=== PATIENT | male | born 1980 | race Caucasian/White ===

== ENCOUNTER 2017-09-25 18:04 | Emergency (ER) | payer BC ==
[2017-09-25] MEDS ORDERED: Sodium Chloride 0.9% 10 ML Syringe FLUSH PRN (18:24)
[2017-09-25] MEDS ORDERED: Sodium Chloride 0.9% 2.5 ML Syringe FLUSH PRN (18:24)
[2017-09-25] MEDS ORDERED: Sodium Chloride 0.9% 1,000 ML IV ONE (18:25)
[2017-09-25] MEDS ORDERED: Metoclopramide 10 MG/2 ML SDV IV ONE (18:25)
--- NOTE | 2017-09-25 18:28 | EDM.PDOC ---
ED HPI GENERAL MEDICAL PROBLEM - General Chief Complaint: Abdominal Pain Stated Complaint: ABDOMINAL PAIN Time Seen by Provider: 09/25/17 18:24 Source of Information: Reports: Patient History Limitations: Reports: No Limitations - History of Present Illness INITIAL COMMENTS - FREE TEXT/NARRATIVE: HISTORY AND PHYSICAL: []37-year-old male presenting with abdominal pain/pressure History of Present Illness: []Last weekend 8 days ago, patient experienced similar pressure. He had diarrhea and then had some bloody stool. Then everything was fairly normal now Tuesday night 8 days later he is having pressure to the lower abdomen. Denies having any stool today. Patient took some Pepcid today and a dulcolax. Review of Systems: As per history of present illness and below otherwise all systems reviewed and negative. Past medical history: As per history of present illness and as reviewed below otherwise noncontributory. Surgical history: As per history of present illness and as reviewed below otherwise noncontributory. Social history: No reported history of drug or alcohol abuse. Family history: As per history of present illness and as reviewed below otherwise noncontributory. Physical exam: HEENT: Atraumatic, normocehpalic, pupils reactive, negative for conjunctival pallor or scleral icterus, mucous membranes moist, throat clear, neck supple, nontender, trachea midline. Lungs: Clear to auscultation, breath sounds equal bilaterally, chest non tender. Heart: S1S2, regular, negative for clicks, rubs, or JVD. Abdomen: Soft, nondistended, nontender. Negative for masses or hepatossplenmegaly. Negative for costovertebral tenderness. Pelvis: Stable nontender. Genitourinary: Deferred. Rectal: Deferred Extremities: Atraumatic, negative for cords or calf pain. Neurovascular unremarkable. Neuro: Awake, alert, oriented. Cranial nerves II through XII unremarkable. Cerebellum unremarkable. Motor and sensory unremarkable throughout. Exam nonfocal. Discussed the negative CT and lab work with this patient. Large of gas throughout the abdomen is noted on his CT scan along with stool. Diagnostics: [CBC CMP amylase lipase abdomen pelvis CT with contrast] Therapeutics: [Normal saline Reglan 10 IV] Impression: [Abdominal pain] Plan: []Discharged to home Dulcolax suppository commended Increase fluid intake Definitive disposition and diagnosis as appropriate pending reevaluation and review of above. Onset: Gradual Duration: Week(s): (1) Location: Reports: Abdomen Quality: Reports: Pressure Severity: Moderate Improves with: Reports: None Worsens with: Reports: None abdominal Pain Score (Numeric/FACES): 5 - Related Data Allergies Allergy/AdvReac Type Severity Reaction Status Date / Time No Known Allergies Allergy Verified 09/25/17 18:13 Home Meds: Home Meds . [No Known Home Meds] 09/25/17 [History] Past Medical History Respiratory History: Reports: Pneumothorax - Infectious Disease History Infectious Disease History: Reports: Chicken Pox Social & Family History - Family History Family Medical History: Noncontributory - Tobacco Use Smoking Status *Q: Never Smoker - Caffeine Use Caffeine Use: Reports: Energy Drinks - Alcohol Use Days Per Week of Alcohol Use: 5 Number of Drinks Per Day: 1 Total Drinks Per Week: 5 - Recreational Drug Use Recreational Drug Use: No ED ROS GENERAL - Review of Systems Review Of Systems: ROS reveals no pertinent complaints other than HPI. ED EXAM, GI/ABD - Physical Exam Exam: See Below (see dictation) Course - Vital Signs Last Recorded V/S: Last Vital Signs Temp 36.7 C 09/25/17 18:05 Pulse 98 09/25/17 18:05 Resp 18 09/25/17 18:05 BP 153/98 H 09/25/17 18:05 Pulse Ox 98 09/25/17 18:05 - Orders/Labs/Meds Orders: Active Orders 24 hr Category Date Time Status Abdomen Pelvis w Cont [CT] Stat Exams 09/25/17 18:25 Taken Sodium Chloride 0.9% [Saline Flush] Med 09/25/17 18:24 Active 10 ml FLUSH ASDIRECTED PRN Sodium Chloride 0.9% [Saline Flush] Med 09/25/17 18:24 Active 2.5 ml FLUSH ASDIRECTED PRN Saline Lock Insert [OM.PC] Stat Oth 09/25/17 18:25 Ordered Medication Orders Sodium Chloride (Saline Flush) 10 ml FLUSH ASDIRECTED PRN PRN Reason: Keep Vein Open Sodium Chloride (Saline Flush) 2.5 ml FLUSH ASDIRECTED PRN PRN Reason: Keep Vein Open Labs: Laboratory Tests 09/25/17 09/25/17 09/25/17 Range/Units 18:31 18:31 18:35 WBC 6.36 (4.0-11.0) K/uL RBC 5.05 (4.50-5.90) M/uL Hgb 15.4 (13.0-17.0) g/dL Hct 43.2 (38.0-50.0) % MCV 85.5 (80.0-98.0) fL MCH 30.5 (27.0-32.0) pg MCHC 35.6 (31.0-37.0) g/dL RDW Std Deviation 40.1 (28.0-62.0) fl RDW Coeff of John 13 (11.0-15.0) % Plt Count 227 (150-400) K/uL MPV 9.50 (7.40-12.00) fL Neut % (Auto) 67.4 (48.0-80.0) % Lymph % (Auto) 18.1 (16.0-40.0) % [place] % (Auto) 13.2 (0.0-15.0) % Eos % (Auto) 1.1 (0.0-7.0) % Baso % (Auto) 0.2 (0.0-1.5) % Neut # (Auto) 4.3 (1.4-5.7) K/uL Lymph # (Auto) 1.2 (0.6-2.4) K/uL [place] # (Auto) 0.8 (0.0-0.8) K/uL Eos # (Auto) 0.1 (0.0-0.7) K/uL Baso # (Auto) 0.0 (0.0-0.1) K/uL Nucleated RBC % 0.0 /100WBC Nucleated RBCs # 0 K/uL Sodium 137 (136-148) mmol/L Potassium 3.6 (3.5-5.1) mmol/L Chloride 102 (98-107) mmol/L Carbon Dioxide 27.7 (21.0-32.0) mmol/L BUN 9 (7.0-18.0) mg/dL Creatinine 0.9 (0.8-1.3) mg/dL Est Cr Clr Drug Dosing TNP Estimated GFR (MDRD) > 60.0 ml/min Glucose 101 (74-106) mg/dL Calcium 8.8 (8.5-10.1) mg/dL Total Bilirubin 0.5 (0.2-1.0) mg/dL AST 29 (15-37) IU/L ALT 44 (14-63) IU/L Alkaline Phosphatase 94 (46-116) U/L Total Protein 7.7 (6.4-8.2) g/dL Albumin 3.7 (3.4-5.0) g/dL Globulin 4.0 H (2.0-3.5) g/dL Albumin/Globulin Ratio 0.9 L (1.3-2.8) Amylase 42 (25-115) U/L Lipase 135 (73-393) U/L TSH 3rd Generation 1.88 (0.36-3.74) uIU/mL Urine Color YELLOW Urine Appearance HAZY Urine pH 6.0 (5.0-8.0) Ur Specific [place] 1.020 (1.001-1.035) Urine Protein NEGATIVE (NEGATIVE) mg/dL Urine Glucose (UA) NEGATIVE (NEGATIVE) mg/dL Urine Ketones NEGATIVE (NEGATIVE) mg/dL Urine Occult Blood SMALL H (NEGATIVE) Urine Nitrite NEGATIVE (NEGATIVE) Urine Bilirubin NEGATIVE (NEGATIVE) Urine Urobilinogen 1.0 (<2.0) EU/dL Ur Leukocyte Esterase NEGATIVE (NEGATIVE) Urine RBC 0-4 (0-2/HPF) Urine WBC 0-1 (0-5/HPF) Ur Epithelial Cells RARE (NONE-FEW) Urine Bacteria RARE (NEGATIVE) Urine Opiates Screen (NEGATIVE) Ur Oxycodone Screen (NEGATIVE) Urine Methadone Screen (NEGATIVE) Ur Barbiturates Screen (NEGATIVE) Ur Phencyclidine Scrn (NEGATIVE) Ur Amphetamine Screen (NEGATIVE) U Methamphetamines Scrn (NEGATIVE) U Benzodiazepines Scrn (NEGATIVE) U Cocaine Metab Screen (NEGATIVE) U Marijuana (THC) Screen (NEGATIVE) 09/25/17 Range/Units 18:35 WBC (4.0-11.0) K/uL RBC (4.50-5.90) M/uL Hgb (13.0-17.0) g/dL Hct (38.0-50.0) % MCV (80.0-98.0) fL MCH (27.0-32.0) pg MCHC (31.0-37.0) g/dL RDW Std Deviation (28.0-62.0) fl RDW Coeff of John (11.0-15.0) % Plt Count (150-400) K/uL MPV (7.40-12.00) fL Neut % (Auto) (48.0-80.0) % Lymph % (Auto) (16.0-40.0) % [place] % (Auto) (0.0-15.0) % Eos % (Auto) (0.0-7.0) % Baso % (Auto) (0.0-1.5) % Neut # (Auto) (1.4-5.7) K/uL Lymph # (Auto) (0.6-2.4) K/uL [place] # (Auto) (0.0-0.8) K/uL Eos # (Auto) (0.0-0.7) K/uL Baso # (Auto) (0.0-0.1) K/uL Nucleated RBC % /100WBC Nucleated RBCs # K/uL Sodium (136-148) mmol/L Potassium (3.5-5.1) mmol/L Chloride (98-107) mmol/L Carbon Dioxide (21.0-32.0) mmol/L BUN (7.0-18.0) mg/dL Creatinine (0.8-1.3) mg/dL Est Cr Clr Drug Dosing Estimated GFR (MDRD) ml/min Glucose (74-106) mg/dL Calcium (8.5-10.1) mg/dL Total Bilirubin (0.2-1.0) mg/dL AST (15-37) IU/L ALT (14-63) IU/L Alkaline Phosphatase (46-116) U/L Total Protein (6.4-8.2) g/dL Albumin (3.4-5.0) g/dL Globulin (2.0-3.5) g/dL Albumin/Globulin Ratio (1.3-2.8) Amylase (25-115) U/L Lipase (73-393) U/L TSH 3rd Generation (0.36-3.74) uIU/mL Urine Color Urine Appearance Urine pH (5.0-8.0) Ur Specific [place] (1.001-1.035) Urine Protein (NEGATIVE) mg/dL Urine Glucose (UA) (NEGATIVE) mg/dL Urine Ketones (NEGATIVE) mg/dL Urine Occult Blood (NEGATIVE) Urine Nitrite (NEGATIVE) Urine Bilirubin (NEGATIVE) Urine Urobilinogen (<2.0) EU/dL Ur Leukocyte Esterase (NEGATIVE) Urine RBC (0-2/HPF) Urine WBC (0-5/HPF) Ur Epithelial Cells (NONE-FEW) Urine Bacteria (NEGATIVE) Urine Opiates Screen NEGATIVE (NEGATIVE) Ur Oxycodone Screen NEGATIVE (NEGATIVE) Urine Methadone Screen NEGATIVE (NEGATIVE) Ur Barbiturates Screen NEGATIVE (NEGATIVE) Ur Phencyclidine Scrn NEGATIVE (NEGATIVE) Ur Amphetamine Screen NEGATIVE (NEGATIVE) U Methamphetamines Scrn NEGATIVE (NEGATIVE) U Benzodiazepines Scrn NEGATIVE (NEGATIVE) U Cocaine Metab Screen NEGATIVE (NEGATIVE) U Marijuana (THC) Screen NEGATIVE (NEGATIVE) Meds: Medications Generic Name Dose Route Start Last Admin Trade Name Freq PRN Reason Stop Dose Admin Sodium Chloride 10 ml 09/25/17 18:24 Saline Flush FLUSH ASDIRECTED PRN Keep Vein Open Sodium Chloride 2.5 ml 09/25/17 18:24 Saline Flush FLUSH ASDIRECTED PRN Keep Vein Open Discontinued Medications Generic Name Dose Route Start Last Admin Trade Name Freq PRN Reason Stop Dose Admin Sodium Chloride 1,000 mls @ 999 mls/hr 09/25/17 18:25 09/25/17 18:41 Normal Saline IV 09/25/17 19:25 999 mls/hr STAT ONE Administration Iopamidol 85 ml 09/25/17 19:21 09/25/17 19:22 Isovue Multipack-370 (76%) IVPUSH 09/25/17 19:22 85 ml ONETIME STA Administration Metoclopramide HCl 10 mg 09/25/17 18:25 09/25/17 18:39 Reglan IV 09/25/17 18:26 10 mg ONETIME ONE Administration Morphine Sulfate 2 mg 09/25/17 19:01 09/25/17 19:45 Morphine IVPUSH 09/25/17 19:02 2 mg ONETIME ONE Administration Ondansetron HCl 4 mg 09/25/17 19:01 Zofran IVPUSH 09/25/17 19:02 ONETIME ONE Departure - Departure Time of Disposition: 20:21 Disposition: Home, Self-Care 01 Condition: Good Clinical Impression: Abdominal pain Qualifiers: Abdominal location: generalized Qualified Code(s): R10.84 - Generalized abdominal pain Diarrhea Qualifiers: Diarrhea type: unspecified type Qualified Code(s): R19.7 - Diarrhea, unspecified - Discharge Information Instructions: Abdominal Pain, Adult, [id number], Diarrhea, Adult Referrals: PCP,None [Primary Care Provider] - Forms: ED Department Discharge Additional Instructions: The following information is given to patients seen in the emergency department who are being discharged to home. This information is to outline your options for follow-up care. We provide all patients seen in our emergency department with a follow-up referral. The need for follow-up, as well as the timing and circumstances, are variable depending upon the specifics of your emergency department visit. If you don't have a primary care physician on staff, we will provide you with a referral. We always advise you to contact your personal physician following an emergency department visit to inform them of the circumstance of the visit and for follow-up with them and/or the need for any referrals to a consulting specialist. The emergency department will also refer you to a specialist when appropriate. This referral assures that you have the opportunity for followup care with a specialist. All of these measure are taken in an effort to provide you with optimal care, which includes your followup. Under all circumstances we always encourage you to contact your private physician who remains a resource for coordinating your care. When calling for followup care, please make the office aware that this follow-up is from your recent emergency room visit. If for any reason you are refused follow-up, please contact the [facility] emergency department at and asked to speak to the emergency department charge nurse. You have gas pains Dulcolax suppository Follow-up with your primary care provider next week - My Orders Last 24 Hours: My Active Orders 09/25/17 18:24 Sodium Chloride 0.9% [Saline Flush] 10 ml FLUSH ASDIRECTED PRN Sodium Chloride 0.9% [Saline Flush] 2.5 ml FLUSH ASDIRECTED PRN 09/25/17 18:25 Abdomen Pelvis w Cont [CT] Stat Saline Lock Insert [OM.PC] Stat - Assessment/Plan Last 24 Hours: My Active Orders 09/25/17 18:24 Sodium Chloride 0.9% [Saline Flush] 10 ml FLUSH ASDIRECTED PRN Sodium Chloride 0.9% [Saline Flush] 2.5 ml FLUSH ASDIRECTED PRN 09/25/17 18:25 Abdomen Pelvis w Cont [CT] Stat Saline Lock Insert [OM.PC] Stat
[2017-09-25] MEDS ORDERED: Ondansetron 4 MG/2 ML SDV IVPUSH ONE (19:01)
[2017-09-25] MEDS ORDERED: Morphine 2 MG/ML Syringe IVPUSH ONE (19:01)
[2017-09-25 19:16] LABS: CHLORIDE,CL 102 mmol/L (98-107); SODIUM,NA 137 mmol/L (136-148)
[2017-09-25] MEDS ORDERED: Iopamidol 755 MG/ML 200 ML Multipack Bottle IVPUSH STA (19:21)
--- NOTE | 2017-09-26 17:07 | CT ---
EXAM DATE: 09/25/17 PATIENT'S AGE: 37 Patient: NATY CARBALLO Facility: [place], [place] Site . Site : [id number] Study: CT Abdomen/Pelvis [id number]/[id number] 7:49:35 PM Ordering Physician: Doctor Echols Final Report: INDICATION: Acute lower abdominal pain. Bloody stools x2 since last week. TECHNIQUE: CT of the abdomen and pelvis performed after the IV injection of 85 mL of Isovue -370. FINDINGS: Small lymph nodes in the abdominal mesentery should be reactive and are not enlarged. The appendix is mildly dilated at 8-9 mm however there is no inflammatory stranding around the appendix to suggest acute inflammation. Small hydroceles. Remainder negative. IMPRESSION: 1. No CT abnormality identified explain the bloody stools. 2. Appendix is mildly dilated but there is no periappendiceal inflammatory stranding to suggest inflammation. Other findings as above. Please note that all CT scans at this facility use dose modulation, iterative reconstruction, and/or weight-based dosing when appropriate to reduce radiation dose to as low as reasonably achievable. Dictated by Hema Jama MD @ Sep 25 2017 8:05PM (Electronic Signature) Report Signed by Proxy. VIKTORIYA
== END 2017-09-25 20:39 | disposition home or self-care (01) ==
LOC: MW.ED 18:04
DX: R10.84 Generalized abdominal pain (principal); R19.7 Diarrhea, unspecified
CPT/HCPCS: 36415; 74177; 80053; 80305; 81001; 82150; 83690; 84443; 85025; 96361; 96374; 96375; 99284; J2270; J2765; J7040; Q9967; 99283

== ENCOUNTER 2021-02-11 20:39 | Emergency (ER) | payer BC ==
--- NOTE | 2021-02-11 21:02 | EDM.PDOC ---
ED HPI GENERAL MEDICAL PROBLEM - General Chief Complaint: Lower Extremity Injury/Pain Stated Complaint: SWOLLEN ANKLE Time Seen by Provider: 02/11/21 20:43 Source of Information: Reports: Patient - History of Present Illness INITIAL COMMENTS - FREE TEXT/NARRATIVE: HISTORY AND PHYSICAL: History of present illness: Patient is a 40-year-old male who presents to the emergency room with complaints of bruising that is now down by his lateral foot. He states approximately a week ago he had injured his proximal lopez resulting in a laceration. He was seen by his primary care provider who evaluated him and was discharged home to [facility]. He states he has had some soft tissue swelling and bruising at the right proximal lopez (area of injury) which is progressively getting better day by day. Today he noticed that there was bruising to the lateral right foot which "freaked me out". He denies any injury, trauma or falls. Patient denies any fever, chills, headache, change in vision, syncope or near syncope. Denies any chest pain, back pain, shortness of breath or cough. Denies any GI or symptoms. Review of systems: As per history of present illness and below otherwise all systems reviewed and n egative. Past medical history: As per history of present illness and as reviewed below otherwise noncontributory. Surgical history: As per history of present illness and as reviewed below otherwise noncontributory. Social history: See social history for further information Family history: As per history of present illness and as reviewed below otherwise noncontributory. Physical exam: General: Well developed and well nourished. Alert and orientated x 3. Nontoxic in appearance and in no acute distress. Vital signs are stable and have been reviewed by me. Nursing notes were reviewed. HEENT: Atraumatic, normocephalic, pupils equal and reactive bilaterally, negative for conjunctival pallor or scleral icterus, mucous membranes moist, TMs normal bilaterally, throat clear, neck supple, nontender, trachea midline. No drooling or trismus noted. No meningeal signs. No hot potato voice noted. Lungs: Clear to auscultation bilaterally. No wheezes, rales, or rhonchi. Chest nontender. Normal work of breathing, no accessory muscles used. Skin: Intact, warm, dry. No lesions or rashes noted. Hematologic: No petechiae or purpra. Mucosa appropriate color and normal nail bed color and refill. Extremities: Atraumatic, moves all extremities per self without difficulty or deficits, negative for cords or calf pain. 2 cm healing abrasion noted to the proximal right lopez with mild erythema around the border. He does have healing/end-stage bruising noted around the right lateral calf that has precipitated down to the lateral foot. Strong pedal and pretibial pulses. Cap refill less than 3 seconds. Positive CMS. Good flexion and extension of the knee and ankle. Neurovascular unremarkable. Neuro: Awake, alert, oriented. Cranial nerves II through XII unremarkable. Cerebellum unremarkable. Motor and sensory unremarkable throughout. Exam nonfocal. Psychiatric: Mood and affect are appropriate. Normal thought process. Answering questions appropriately. Notes: *This patient was seen and evaluated during the 2019 SARS-CoV-2 novel coronavirus pandemic period. Community viral transmission is ongoing at time of this encounter and the emergency department is operating under pandemic response procedures. Patient's physical exam is within normal limits in regards to the type of injury he received. He declines wanting any further imaging. States he feels he is healing well. States he was concerned about the bruising that is now traveled to the lateral foot. He has no tenderness. He does mention that he was working and up on his feet all day today. He did not have a chance to elevate his legs. No concern for DVT, occult fracture or further injury. I have talked with the patient about today's findings, in addition to providing specific details for plan of care. Reassessment at the time of disposition demonstrates that the patient is in no acute distress. The patient is stable for discharge, counseling was provided and we discussed in great detail signs and symptoms that would prompt them to return to the Emergency Department. Medication, follow up and supportive care measures were reviewed and discussed. Voices understanding and is agreeable to plan of care. Denies any further questions or concerns at this time. Diagnostics: Declines Therapeutics: None Prescription: None Impression: Worried well Plan: 1. You were evaluated today on an emergent basis. The bruising you now see to your lateral foot/ankle is normal for the extent of injury/bruising that occurred a week ago. Has a bruise heals the blood (from the bruise) will travel downward due to gravity, especially if you are up walking around and not keeping your feet elevated. Rest, ice, elevate the extremity as able. You can use a compression sock and/or Baljinder wrap to help with soft tissue swelling. 2. You can alternate Tylenol and ibuprofen as needed for pain and fever management. 3. We encourage you to follow up with your primary care provider and/or recommended specialist in the next few days for re-evaluation and further care/management. 4. If your symptoms should worsen, new symptoms develop or any of the signs and symptoms we discussed should arise please return to the emergency room or call 911 (if needed). Definitive disposition and diagnosis as appropriate pending reevaluation and review of above. - Related Data Allergies Allergy/AdvReac Type Severity Reaction Status Date / Time No Known Allergies Allergy Verified 02/11/21 20:53 Home Meds: Home Meds . [No Known Home Meds] 09/25/17 [History] Past Medical History - Past Health History Medical/Surgical History: Denies Medical/Surgical History Respiratory History: Reports: Pneumothorax - Infectious Disease History Infectious Disease History: Reports: Chicken Pox Social & Family History - Family History Family Medical History: No Pertinent Family History - Caffeine Use Caffeine Use: Reports: Coffee - Recreational Drug Use Recreational Drug Use: No Review of Systems - Review of Systems Review Of Systems: Comprehensive ROS is negative, except as noted in HPI. ED EXAM, GENERAL - Physical Exam Exam: See Below (See dictation) Course - Vital Signs Last Recorded V/S: Last Vital Signs Temp 97.6 F 02/11/21 20:51 Pulse 82 02/11/21 20:51 Resp 20 02/11/21 20:51 BP 162/101 H 02/11/21 20:51 Pulse Ox 97 02/11/21 20:51 Departure - Departure Time of Disposition: 21:02 Disposition: Home, Self-Care 01 Clinical Impression: Worried well - Discharge Information Instructions: Contusion, [id number] Referrals: Gene Salamanca MD [Primary Care Provider] - Additional Instructions: The following information is given to patients seen in the emergency department who are being discharged to home. This information is to outline your options for follow-up care. We provide all patients seen in our emergency department with a follow-up referral. The need for follow-up, as well as the timing and circumstances, are variable depending upon the specifics of your emergency department visit. If you don't have a primary care physician on staff, we will provide you with a referral. We always advise you to contact your personal physician following an emergency department visit to inform them of the circumstance of the visit and for follow-up with them and/or the need for any referrals to a consulting specialist. The emergency department will also refer you to a specialist when appropriate. This referral assures that you have the opportunity for follow-up care with a specialist. All of these measure are taken in an effort to provide you with optimal care, which includes your follow-up. Under all circumstances we always encourage you to contact your private physician who remains a resource for coordinating your care. When calling for follow-up care, please make the office aware that this follow-up is from your recent emergency room visit. If for any reason you are refused follow-up, please contact the [facility] Emergency Department at and asked to speak to the emergency department charge nurse. [facility] [address] [place] [id number] [facility] [address] [place] [id number] Thank you for choosing the [facility] emergency department in [place] for your medical needs today. It was a pleasure caring for you. Today you were seen in the emergency department for bruising. 1. You were evaluated today on an emergent basis. The bruising you now see to your lateral foot/ankle is normal for the extent of injury/bruising that occurred a week ago. Has a bruise heals the blood (from the bruise) will travel downward due to gravity, especially if you are up walking around and not keeping your feet elevated. Rest, ice, elevate the extremity as able. You can use a compression sock and/or Baljinder wrap to help with soft tissue swelling. 2. You can alternate Tylenol and ibuprofen as needed for pain and fever management. 3. We encourage you to follow up with your primary care provider and/or recommended specialist in the next few days for re-evaluation and further care/management. 4. If your symptoms should worsen, new symptoms develop or any of the signs and symptoms we discussed should arise please return to the emergency room or call 911 (if needed). Sepsis Event Note (ED) - Evaluation Sepsis Screening Result: No Definite Risk - Focused Exam Vital Signs: Vital Signs Temp Pulse Resp BP Pulse Ox 02/11/21 20:51 97.6 F 82 20 162/101 H 97
== END 2021-02-11 21:10 | disposition home or self-care (01) ==
LOC: MW.ED 20:39
DX: Z71.1 Person with feared health complaint in whom no diagnosis is made (principal)
CPT/HCPCS: 99282